=== PATIENT | female | born 1975 | race Caucasian/White ===

== ENCOUNTER → 2016-12-14 | Outpatient (CLI) | payer OTHER ==
[~2016-12-14] MED LIST: BENI20TA26 PO; CETI10 PO; KCL20 PO; LORTA5 PO; PRED-1 PO
[2016-12-14 10:43] LABS: AUTOMATED NEUTROPHIL # 5.8 TH/MM3 (1.8-7.7); BASOPHIL # 0.1 TH/MM3 (0-0.2); BASOPHIL % 0.7 % (0.0-2.0); EOSINOPHIL # 0.2 TH/MM3 (0-0.4); EOSINOPHIL % 1.7 % (0.0-4.0); HEMATOCRIT 38.1 % (35.0-46.0); HEMO FLAGS DIFF FINAL; LYMPH % 31.6 % (9.0-44.0); LYMPHOCYTE # 3.1 TH/MM3 (1.0-4.8); MEAN CELL VOLUME 86.2 FL (80.0-100.0); MEAN CORPUSCULAR HEMOGLOBIN 29.3 PG (27.0-34.0); MEAN CORPUSCULAR HGB CONC 33.9 % (32.0-36.0); MONO % 6.7 % (0.0-8.0); NEUT % 59.3 % (16.0-70.0); PLATELET COUNT 263 TH/MM3 (150-450); RED BLOOD COUNT 4.42 MIL/MM3 (4.00-5.30); RED CELL DISTRIBUTION WIDTH 13.3 % (11.6-17.2); WHITE BLOOD COUNT 9.7 TH/MM3 (4.0-11.0)
[2016-12-14 11:04] LABS: WESTERGREN SEDIMENTATION RATE 11 mm/hr (0-20)
[2016-12-14 11:25] LABS: INDIRECT BILIRUBIN 0.4 MG/DL (0.0-0.8); TOTAL BILIRUBIN ADULT 0.5 MG/DL (0.2-1.0)
[2016-12-18 15:54] LABS: ALMOND LESS THAN 0.10 kU/L (()); ALMOND CLASS 0 (()); CASHEW CLASS 0 (()); CODFISH CLASS 0 (()); COWS MILK CLASS 0 (()); COWS MILK IGE LESS THAN 0.10 kU/L (()); EGG WHITE LESS THAN 0.10 kU/L (()); EGG WHITE CLASS 0 (()); HAZELNUT LESS THAN 0.10 kU/L (()); HAZELNUT CLASS 0 (()); PEANUT LESS THAN 0.10 kU/L (()); PEANUT CLASS 0 (()); SALMON LESS THAN 0.10 kU/L (()); SALMON CLASS 0 (()); SCALLOP LESS THAN 0.10 kU/L (()); SCALLOP CLASS 0 (()); SESAME SEED LESS THAN 0.10 kU/L (()); SESAME SEED CLASS 0 (()); SHRIMP LESS THAN 0.10 kU/L (()); SHRIMP CLASS 0 (()); SOYBEAN LESS THAN 0.10 kU/L (()); SOYBEAN CLASS 0 (()); TUNA LESS THAN 0.10 kU/L (()); TUNA CLASS 0 (()); WALNUT LESS THAN 0.10 kU/L (()); WALNUT CLASS 0 (()); WHEAT LESS THAN 0.10 kU/L (()); WHEAT CLASS 0 (())
== END ==
LOC: CLAB 10:11
PROVIDERS: ATTEND Specialist
DX: L50.9 Urticaria, unspecified (principal)
CPT/HCPCS: 36415; 80076; 82785; 85025; 85652; 86003; 86038

== ENCOUNTER → 2017-02-21 | Day surgery (SDC) | payer OTHER ==
[~2017-02-21] MED LIST changes: +LACTATED RINGER'S 1000 ML INJ 1,000 ML ONE
--- NOTE | 2017-02-21 12:11 | GIPROC ---
[facility] [address], [address] EGD PROCEDURE REPORT EXAM DATE: 02/21/2017 PATIENT NAME: Justin Mcrae MR #: [id number] BIRTHDATE: 1975 ATTENDING: Keila Anderson MD ORDER #: [id number] PERISHABLE FRUIT INSPECTOR: Jaclyn Davis RN STATUS: outpatient INDICATIONS: The patient is a 41 yr old female here for an EGD due to history of esophageal reflux PROCEDURE PERFORMED: EGD w/ biopsy MEDICATIONS: None and Per Anesthesia. TOPICAL ANESTHETIC: CONSENT: The patient understands the risks and benefits of the procedure and understands that these risks include, but are not limited to: sedation, allergic reaction, infection, perforation and/or bleeding. Alternative means of evaluation and treatment include, among others: physical exam, x-rays, and/or surgical intervention. The patient elects to proceed with this endoscopic procedure. medical equipment was checked for proper function. Hand hygiene and appropriate measures for infection prevention was taken. After the risks, benefits and alternatives of the procedure were thoroughly explained, Informed consent was verified, confirmed and timeout was successfully executed by the treatment team. The patient was anesthetized with topical anesthesia and the EG-[id number] ([id number]) endoscope was introduced through the mouth and advanced to the second portion of the duodenum. Retroflexed views revealed no abnormalities The gastroscope was then slowly withdrawn and removed. ESOPHAGUS: There was LA Class A esophagitis noted. A biopsy was performed using cold forceps. Sample sent for histology. STOMACH: There was erythematous moderate gastritis in the gastric antrum. A biopsy was performed using cold forceps. Sample sent for histology. DUODENUM: The duodenal mucosa appeared normal in the bulb and second portion of the duodenum. ADVERSE EVENTS: There were no complications. IMPRESSIONS: 1. There was LA Class A esophagitis noted 2. There was erythematous gastritis in the gastric antrum; biopsy was performed 3. Normal duodenal mucosa in the bulb and second portion of the duodenum 4. Retroflexed views revealed no abnormalities RECOMMENDATIONS: 1. Anti-reflux regimen 2. Await biopsy results. Biopsy results will not be ready for 7-10 days. If you don't hear from us in two weeks, call our office for biopsy results. 3. Avoid NSAIDS 4. Continue PPI PATIENT CONDITION: stable DISPOSITION: Home REPEAT EXAM: Return 1 year EGD pending biopsy results Keila Anderson MD eSigned: Keila Anderson MD 02/21/2017 12:10 PM cc: Leidy Correa [facility] Sridevi Moreno M.D. PATIENT NAME: Justin Mcrae MR#: [id number]
== END | disposition home or self-care (01) ==
LOC: ESDC 09:53
PROVIDERS: ATTEND Internal Medicine Gastroenterology
DX: K21.9 Gastro-esophageal reflux disease without esophagitis (principal); K29.70 Gastritis, unspecified, without bleeding; K20.9 Esophagitis, unspecified; Z12.11 Encounter for screening for malignant neoplasm of colon; Z80.0 Family history of malignant neoplasm of digestive organs
CPT/HCPCS: 00740; 00810; 43239; 45378; 88305; 88312; J3010; J7120

== ENCOUNTER → 2017-04-12 | Outpatient (CLI) | payer OTHER ==
[~2017-04-12] MED LIST changes: -LACTATED RINGER'S 1000 ML INJ 1,000 ML ONE
[2017-04-12 09:13] LABS: FREE T4 1.24 NG/DL (0.76-1.46); INDIRECT BILIRUBIN 0.5 MG/DL (0.0-0.8); TOTAL BILIRUBIN ADULT 0.6 MG/DL (0.2-1.0)
== END ==
LOC: OLAB 07:35
PROVIDERS: ATTEND Dermatology
DX: D35.2 Benign neoplasm of pituitary gland (principal); E03.9 Hypothyroidism, unspecified
CPT/HCPCS: 80074; 80076; 82024; 84146; 84439; 84443

== ENCOUNTER → 2017-10-12 | Outpatient (CLI) | payer OTHER ==
[2017-10-12 12:56] LABS: FREE T4 1.31 NG/DL (0.76-1.46)
== END ==
LOC: OLAB 08:16
DX: E03.9 Hypothyroidism, unspecified (principal); D35.2 Benign neoplasm of pituitary gland
CPT/HCPCS: 84146; 84439; 84443

== ENCOUNTER → 2018-03-01 | Outpatient (CLI) | payer OTHER ==
[2018-03-01 09:12] LABS: AUTOMATED NEUTROPHIL # 4.5 TH/MM3 (1.8-7.7); BASOPHIL % 0.4 % (0.0-2.0); EOSINOPHIL # 0.3 TH/MM3 (0-0.4); EOSINOPHIL % 3.6 % (0.0-4.0); HEMATOCRIT 39.3 % (35.0-46.0); HEMOGLOBIN 13.5 GM/DL (11.6-15.3); LYMPHOCYTE # 2.5 TH/MM3 (1.0-4.8); MEAN CELL VOLUME 83.8 FL (80.0-100.0); MEAN CORPUSCULAR HEMOGLOBIN 28.8 PG (27.0-34.0); MEAN CORPUSCULAR HGB CONC 34.3 % (32.0-36.0); MEAN PLATELET VOLUME 9.5 FL (7.0-11.0); MONO % 5.5 % (0.0-8.0); MONOCYTE # 0.4 TH/MM3 (0-0.9); NEUT % 58.5 % (16.0-70.0); PLATELET COUNT 299 TH/MM3 (150-450); RED BLOOD COUNT 4.69 MIL/MM3 (4.00-5.30); RED CELL DISTRIBUTION WIDTH 12.8 % (11.6-17.2); WHITE BLOOD COUNT 7.7 TH/MM3 (4.0-11.0)
[2018-03-01 10:35] LABS: ALBUMIN 3.8 GM/DL (3.4-5.0); AST (GOT) 30 U/L (15-37); BLOOD UREA NITROGEN 7 MG/DL (7-18); CALCIUM 8.8 MG/DL (8.5-10.1); CHLORIDE 103 MEQ/L (98-107); GLOMERULAR FILTRATION RATE 79 ML/MIN (>89); SODIUM (NA) 140 MEQ/L (136-145)
[2018-03-01 10:50] LABS: ALKALINE PHOSPHATASE 53 U/L (45-117); ALT (GPT) 55 U/L (10-53); CHOLESTEROL 149 MG/DL (120-200); CHOLESTEROL/ HDL RATIO 5.91 RATIO; GLUCOSE,FASTING 146 MG/DL (74-99); HDL CHOLESTEROL 25.2 MG/DL (40.0-60.0); TOTAL BILIRUBIN ADULT 0.7 MG/DL (0.2-1.0); TOTAL PROTEIN 7.5 GM/DL (6.4-8.2); TRIGLYCERIDES 422 MG/DL (42-150)
[2018-03-01 14:32] LABS: HEMOGLOBIN A1C 6.6 % (4.3-6.0)
== END ==
LOC: OLAB 07:51
PROVIDERS: ATTEND Family Medicine
DX: E03.9 Hypothyroidism, unspecified (principal); I10 Essential (primary) hypertension; E78.2 Mixed hyperlipidemia; E11.9 Type 2 diabetes mellitus without complications
CPT/HCPCS: 36415; 80053; 80061; 83036; 84443; 85025

== ENCOUNTER → 2018-04-15 | Outpatient (CLI) | payer OTHER | LOC: CLAB 11:06 | PROVIDERS: ATTEND Obstetrics & Gynecology | DX: Z11.3 Encounter for screening for infections with a predominantly sexual mode of transmission (principal) | CPT/HCPCS: 36415; 80074; 86592; 87389; G0475 ==